=== PATIENT | female | born 1995 | race Caucasian/White ===

== ENCOUNTER 2020-09-20 08:06 | Inpatient (IN) ==
[2020-09-20] MEDS ORDERED: Naloxone 0.4 MG/ML INJ IVP PRN (08:14)
[2020-09-20] MEDS ORDERED: Famotidine 20 MG/2 ML VIAL IVP PRN (08:14)
[2020-09-20] MEDS ORDERED: Azithromycin 500 MG in 0.9 % Sodium Chloride 250 ML IVPB PRN (08:14)
[2020-09-20] MEDS ORDERED: Lidocaine 1% 20 ML MDV INFILT PRN (08:14)
[2020-09-20] MEDS ORDERED: Penicillin G Potassium 5,000,000 UNIT in 0.9 % Sodium Chloride Mini Bag 100 ML IVPB ONE (08:14)
[2020-09-20] MEDS ORDERED: Metoclopramide 10 MG/2 ML VIAL IVP PRN (08:14)
[2020-09-20] MEDS ORDERED: Oxytocin 20 units/ LR 1000 mL 20 UNIT/1,000 ML BAG IVC SCH (08:30)
[2020-09-20] MEDS: Ringers Solution, Lactated 1,000 ML IVC SCH ×2 (08:50→16:45)
[2020-09-20 09:22] LABS: Basophils # 0.1 K/mcL (0.0-0.2); Basophils % 0.4 %; Eosinophils # 0.3 K/mcL (0.0-0.6); Eosinophils % 2.8 %; Hematocrit 36.3 % (35.3-44.9); Hemoglobin 11.9 g/dL (11.5-15.4); Immature Granulocytes % 0.4 % (0-4); Lymphocytes # 2.1 K/mcL (0.6-4.6); Lymphocytes % 18.4 %; Mean Corpuscular HGB Conc 32.8 g/dL (31.6-35.5); Mean Corpuscular Hemoglobin 29.2 pg (28.0-33.3); Monocytes # 0.8 K/mcL (0.0-1.3); Platelet Count 280 K/mcL (140-400); Red Blood Count 4.08 M/mcL (3.82-4.97); Red Cell Distribution Width 13.6 % (11.5-14.5); White Blood Count 11.3 K/mcL (4.3-11.1)
[2020-09-20] MEDS ORDERED: *HR* FentaNYL (PF) 100 MCG/2 ML VIAL ONE (09:38)
[2020-09-20] MEDS ORDERED: Bupivacaine-MPF 0.25% 10 ML VIAL ONE (09:38)
[2020-09-20 10:06] LABS: Influenza A PCR Negative (Negative); Influenza B PCR Negative (Negative); Resp. Syncytial Virus PCR Negative (Negative); SARS-CoV-2 by PCR (In House) Negative (Negative)
[2020-09-20 10:32] LABS: Amphetamine Screen,Urine Negative ng/mL (Cutoff=1000); Barbiturate Screen,Urine Negative ng/mL (Cutoff=200); Benzodiazepines Screen,Urine Negative ng/mL (Cutoff=200); Cannabinoid Screen,Urine Negative ng/mL (Cutoff = 50); Cocaine Screen,Urine Negative ng/mL (Cutoff= 300); Opiate Screen,Urine Negative ng/mL (Cutoff=300); Phencyclidine Screen,Urine Negative ng/mL (Cutoff=25)
[2020-09-20] MEDS ORDERED: *HR* Nalbuphine 10 MG/ML AMPUL IV PRN (10:57)
[2020-09-20] MEDS: Penicillin G Potassium 2,500,000 UNIT/105 ML MLS IVPB SCH ×2 (12:50→16:50)
[2020-09-20] MEDS ORDERED: EPHEDrine 50 MG/ML VIAL IVP PRN (15:24)
[2020-09-20] MEDS ORDERED: *HR* FentaNYL (PF) 100 MCG/2 ML VIAL EP ONE (15:24)
[2020-09-20] MEDS ORDERED: Bupivacaine-MPF 0.25% 10 ML VIAL EP ONE (15:24)
[2020-09-20] MEDS ORDERED: Epidural Premix (fent/bupiv) 110 ML EP ONE (15:27)
[2020-09-20] MEDS ORDERED: Epidural Premix (fent/bupiv) 110 ML EP SCH (15:30)
[2020-09-20] MEDS: Ondansetron 4 MG/2 ML VIAL IVP PRN ×2 (16:38→23:48)
[2020-09-21] MEDS ORDERED: *HR* OxyCODONE Immed Rel 5 MG TABLET PO PRN (00:16)
[2020-09-21] MEDS ORDERED: Oxytocin 20 units/ LR 1000 mL 20 UNIT/1,000 ML BAG IVC SCH (00:16)
[2020-09-21] MEDS ORDERED: Benzocaine/Menthol 56 GM AEROSOL SPRAY TP PRN (00:16)
[2020-09-21] MEDS ORDERED: Lanolin 7 G OINT...G. TP PRN (00:16)
[2020-09-21] MEDS ORDERED: Rho Immune Globulin 1,500 UNIT SYRINGE IM PRN (00:16)
[2020-09-21] MEDS: Acetaminophen 325 MG TABLET PO SCH ×5 (00:46→21:21)
[2020-09-21] MEDS: Ibuprofen 600 MG TABLET PO SCH ×5 (00:47→21:20)
[2020-09-21] MEDS: Prenatal Vit/FA 1 EACH TABLET PO SCH (09:02)
[2020-09-22] MEDS: Ibuprofen 600 MG TABLET PO SCH (04:08)
[2020-09-22] MEDS: Acetaminophen 325 MG TABLET PO SCH (04:08)
[2020-09-22 07:57] VITALS: BP 111/69
[2020-09-22] MEDS: Prenatal Vit/FA 1 EACH TABLET PO SCH (08:46)
== END 2020-09-22 11:43 | disposition home or self-care (01) | DRG 560 ==
LOC: 1NENULAB 08:06 → 1NENUOBS 23:10
PROVIDERS: ADMIT Obstetrics & Gynecology; ATTEND Obstetrics & Gynecology